=== PATIENT | male | born 2000 | race Caucasian/White ===

== ENCOUNTER 2020-11-24 00:44 | Emergency (ER) | payer MEDICAID ==
[~2020-11-24] VITALS: Ht 185.4 cm; Wt 61.2 kg
[2020-11-24 00:44] VITALS: BP_SYST 99
[2020-11-24] MEDS ORDERED: IBUPROFEN 800 MG TABLET PO ONE (02:15)
[2020-11-24 02:45] VITALS: BP_SYST 102
== END 2020-11-24 02:45 | disposition home or self-care (01) ==
LOC: SED 00:44
DX: S69.91XA Unspecified injury of right wrist, hand and finger(s), initial encounter (principal); V49.9XXA Car occupant (driver) (passenger) injured in unspecified traffic accident, initial encounter; Y93.89 Activity, other specified; Y92.413 State road as the place of occurrence of the external cause; Y99.8 Other external cause status
CPT/HCPCS: 99283